=== PATIENT | female | born 1955 | race American Indian/Alaskan Native ===

== ENCOUNTER 2016-11-15 12:05 | Emergency (ER) | payer SELFPAY ==
[2016-11-15] MEDS ORDERED: ATIVAN ONE (12:23)
[2016-11-15 12:28] LABS: Hematocrit 44.4 % (30.3-42.9); Hemoglobin 14.6 gm/dl (10.1-14.3); Mean Corpuscular HGB Conc 33 % (30-34); Mean Corpuscular Hemoglobin 29 pg (28-32); Mean Corpuscular Volume 89 fl (79-97); Platelet Count 238 K/mm3 (140-440); Red Blood Count 4.98 M/mm3 (3.65-5.03); Red Cell Distribution Width 13.4 % (13.2-15.2); White Blood Count 5.7 K/mm3 (4.5-11.0)
--- NOTE | 2016-11-15 12:29 | Cat Scan Report ---
CT HEAD WITHOUT CONTRAST: HISTORY: CVA. TECHNIQUE: Sequential CT images without contrast. FINDINGS: Images obtained show bilateral prominence of the sulci and ventricles. There are no abnormal intra- or extra-axial blood or fluid collections. There are no focal masses or evidence of mass effect. The villatoro white matter differentiation appears within normal limits. Regions of periventricular decreased attenuation are consistent with microangiopathic ischemic disease. The posterior fossa structures including the fourth ventricle, cerebellum, and brainstem appear normal. IMPRESSION: Evidence of atrophy and microangiopathic ischemic disease. No acute intracranial process noted. No significant change since 05/11/16.
[2016-11-15 12:38] LABS: INR 1.01 (0.87-1.13)
[2016-11-15 12:39] LABS: Partial Thromboplastin Time 28.2 Sec. (24.2-36.6)
[2016-11-15 12:54] LABS: Anion Gap 18 mmol/L; Blood Urea Nitrogen 12 mg/dL (7-17); Carbon Dioxide 22 mmol/L (22-30); Chloride 103.8 mmol/L (98-107); Glucose 112 mg/dL (65-100); Potassium 3.7 mmol/L (3.6-5.0); Sodium 140 mmol/L (137-145)
[2016-11-15 13:04] LABS: Basophils % (Manual) 0 % (0.0-1.8); Blastocytes % (Manual) 0 %
[2016-11-15 13:05] LABS: Anisocytosis 1+; Diff Status Complete; Platelet Estimate Cons
--- NOTE | 2016-11-15 13:06 | Emergency Department Report ---
HPI - General Time Seen by Provider: 11/15/16 12:12 - HPI HPI: Chief complaint: Altered mental status HPI: Patient is 61-year-old female whose neighbor states that she was fine 30 minutes prior to admission when the neighbor was there visiting her but when she came back the patient was standing in her yard crying and having difficulty speaking stating that her mother had . The neighbor states the patient had multiple strokes and supposedly has an aneurysm however review of the old chart shows that patient has been here several times for possible strokes and has had negative MRIs and MRAs and no definite stroke or aneurysm ever. Previous episodes were triggered by emotional events. Patient states that her sister called her from [place] to tell her that her mother . Mode of arrival: EMS Source: Patient ,old chart and next door neighbor Began: 30 minutes prior to admission Duration: 30 minutes Context: See above Quality: Headache Severity: Mild to moderate Improved with: Reassurance Worsened with: Nothing Associated signs and symptoms: No chest pain or shortness of breath ED Past Medical Hx - Past Medical History Hx Hypertension: Yes Hx Arthritis: Yes - Surgical History Additional Surgical History: Right knee replacement - Social History Smoking Status: Current Every Day Smoker - Medications Home Medications: Home Medications Medication Instructions Recorded Confirmed Last Taken Type Acetaminophen/Codeine [Tylenol #3] 1 tab PO Q6H PRN 12/23/15 05/11/16 Unknown History Metoprolol [Lopressor] 0 mg PO DAILY 12/23/15 05/11/16 Unknown History NIFEdipine XL [Procardia Xl] 0 mg PO QDAY 12/23/15 05/11/16 Unknown History traMADol [Ultram] 50 mg PO Q6HR PRN 12/23/15 05/11/16 Unknown History Aspirin [Aspirin TAB] 325 mg PO QDAY #30 tablet 05/13/16 Unknown Rx Simvastatin [Zocor TAB] 5 mg PO QHS #30 tablet 05/13/16 Unknown Rx hydrOXYzine PAMOATE [Vistaril] 25 mg PO Q6HR PRN #7 capsule 11/15/16 Unknown Rx ED Review of Systems ROS: Stated complaint: CVA Other details as noted in HPI ROS Constitutional: No fever ENT: No uri symptoms Cardiovascular: No chest pain Respiratory: No sob or cough GI: No nausea vomiting or diarrhea : No dysuria frequency or urgency, Skin: No rash Neuro: No focal weakness or numbness Psych: Anxiety Stanislaw/lymph: No edema Physical Exam - Physical Exam Physical Exam: GENERAL: The patient is well-developed well-nourished . Patient crying and not initially answering any questions. HEENT: Normocephalic. Atraumatic. Extraocular motions are intact. Patient has moist mucous membranes. NECK: Supple. No meningitic signs are noted. There is no adenopathy noted. CHEST/LUNGS: Clear to auscultation. There is no respiratory distress noted. HEART/CARDIOVASCULAR: Regular. There is no tachycardia. There is no gallop rub or murmur. ABDOMEN: Abdomen is soft, nontender. Patient has normal bowel sounds. There is no abdominal distention. SKIN: There is no rash. There is no edema. There is no diaphoresis. NEURO: The patient is awake, alert, and trying. The patient is cooperative. The patient has no focal neurologic deficits. The patient has normal speech. MUSCULOSKELETAL: There is no tenderness or deformity. There is no limitation range of motion. There is no evidence of acute injury. ED Course - Reevaluation(s) Reevaluation #1: 11/15/16 Patient was given 1 mg of IV Ativan with significant improvement. Patient is ready to go home. Patient has no neurologic deficits at this time. ED Medical Decision Making - Lab Data Result diagrams: 11/15/16 12:04 11/15/16 12:04 Laboratory Tests 11/15/16 11/15/16 11/15/16 12:04 12:04 12:04 PT 13.2 INR 1.01 APTT 28.2 Thrombin Time 19.2 Troponin T < 0.010 - Radiology Data Radiology results: report reviewed (CT scan shows no change since April 2016.) Critical care attestation.: If time is entered above; I have spent that time in minutes in the direct care of this critically ill patient, excluding procedure time. ED Disposition Clinical Impression: Emotional crisis Disposition: DISCHARGED TO HOME OR SELFCARE Is pt being admited?: No Does the pt Need Aspirin: No Condition: Stable Instructions: Anxiety (ED) Prescriptions: hydrOXYzine PAMOATE [Vistaril] 25 mg PO Q6HR PRN #7 capsule PRN Reason: Anxiety Referrals: PRIMARY CARE, [Primary Care Provider] - 3-5 Days Time of Disposition: 14:28
[2016-11-15] MEDS ORDERED: ATIVAN IV ONE (13:17)
[2016-11-15 14:42] VITALS: BP 156/83
== END 2016-11-15 14:42 | disposition home or self-care (01) ==
LOC: ED 12:05
DX: F43.20 Adjustment disorder, unspecified (principal); I10 Essential (primary) hypertension; M19.90 Unspecified osteoarthritis, unspecified site; F17.200 Nicotine dependence, unspecified, uncomplicated; Z96.651 Presence of right artificial knee joint; Z79.82 Long term (current) use of aspirin
CPT/HCPCS: 36415; 70450; 80048; 84484; 85007; 85025; 85610; 85670; 85730; 96374; 99285; J2060

== ENCOUNTER 2018-11-29 14:46 | Emergency (ER) | payer MEDICARE ==
[2018-11-29 15:12] VITALS: BP 160/106
--- NOTE | 2018-11-29 15:12 | Emergency Department Report ---
Blank Doc - Documentation Documentation: This is a 63-year-old female that presents with URI symptoms. This initial assessment/diagnostic orders/clinical plan/treatment(s) is/are subject to change based on patient's health status, clinical progression and re- assessment by fellow clinical providers in the ED. Further treatment and workup at subsequent clinical providers discretion. Patient/guardians urged not to elope from the ED as their condition may be serious if not clinically assessed and managed. Initial orders include: 1- Patient sent to [facility] for further evaluation and treatment 2- CXR
--- NOTE | 2018-11-29 16:30 | Emergency Department Report ---
Minor Respiratory - HPI Chief Complaint: Upper Respiratory Infection Stated Complaint: FLU LIKE SYMPTOMS Time Seen by Provider: 11/29/18 14:52 Duration: 5 Days Pain Location: Chest Severity: moderate Minor Respiratory: Yes Rhinorrhea, Yes Able to Tolerate Fluids, Yes Cough, Yes Sick Contacts, No Sore Throat, No Ear Pain, No Hemoptysis, No Chest Pain, No Shortness of Breath, No Fever Other History: Mrs. Lauren is a 63-year-old female with a history of tobacco abuse, CVA, hypertension who presents with cough, headache, body aches for 5 days. ED Review of Systems ROS: Stated complaint: FLU LIKE SYMPTOMS Other details as noted in HPI Comment: All other systems reviewed and negative Constitutional: denies: fever, malaise Respiratory: cough, wheezing ED Past Medical Hx - Past Medical History Hx Hypertension: Yes Hx CVA: Yes Hx Congestive Heart Failure: No Hx Diabetes: No Hx Arthritis: Yes Hx Asthma: No Hx COPD: No Hx HIV: No - Surgical History Past Surgical History?: Yes Additional Surgical History: Right knee replacement - Social History Smoking Status: Unknown if ever smoked Substance Use Type: None - Medications Home Medications: Home Medications Medication Instructions Recorded Confirmed Last Taken Type Acetaminophen/Codeine [Tylenol #3] 1 tab PO Q6H PRN 12/23/15 05/11/16 Unknown History Metoprolol [Lopressor] 0 mg PO DAILY 12/23/15 05/11/16 Unknown History NIFEdipine XL [Procardia Xl] 0 mg PO QDAY 12/23/15 05/11/16 Unknown History traMADol [Ultram] 50 mg PO Q6HR PRN 12/23/15 05/11/16 Unknown History Aspirin [Aspirin TAB] 325 mg PO QDAY #30 tablet 05/13/16 Unknown Rx Simvastatin [Zocor TAB] 5 mg PO QHS #30 tablet 05/13/16 Unknown Rx hydrOXYzine PAMOATE [Vistaril] 25 mg PO Q6HR PRN #7 capsule 11/15/16 Unknown Rx Doxycycline Hyclate [Doxycycline 100 mg PO Q12HR 7 Days #14 tab 11/29/18 Unknown Rx Hyclate TAB] predniSONE [Deltasone] 3 tab PO QDAY 4 Days #12 tab 11/29/18 Unknown Rx Minor Respiratory Exam - Exam General: Vital signs noted. No distress. Alert and acting appropriately. HEENT: Yes Moist Mucous Membranes, No Pharyngeal Erythema, No Pharyngeal Exu dates, No Rhinorrhea, No Conjuctival Injection Neck: Yes Supple, No Adenopathy Lungs: Yes Good Air Exchange, No Wheezes, No Ronchi, No Stridor, No Cough, No Labored Respirations, No Retractions, No Use of Accessory Muscles, No Other Abnormal Lung Sounds Heart: Yes Regular, No Murmur Abdomen: Yes Normal Bowel Sounds, No Tenderness, No Peritoneal Signs Skin: No Rash, No Edema Neurologic: Alert and oriented, no deficits. Musculoskeletal: Unremarkable. ED Course Vital Signs 11/29/18 15:10 Temperature 98.6 F Pulse Rate 97 H Respiratory 18 Rate Blood Pressure 160/106 O2 Sat by Pulse 99 Oximetry ED Medical Decision Making - Radiology Data Radiology results: image reviewed interpreted by me: I personally reviewed chest radiographs PA and lateral: +Hyperinflated lungs, +lung scarring, +atelectasis, no pneumothorax, no infiltrate - Medical Decision Making Mrs. Lauren has acute bronchitis with history of tobacco abuse will need antibiotics and steroids. Prescribed: Prednisone and doxycycline Critical care attestation.: If time is entered above; I have spent that time in minutes in the direct care of this critically ill patient, excluding procedure time. ED Disposition Clinical Impression: Acute bronchitis Disposition: DC-01 TO HOME OR SELFCARE Is pt being admited?: No Does the pt Need Aspirin: No Condition: Stable Instructions: Acute Bronchitis (ED) Prescriptions: predniSONE [Deltasone] 3 tab PO QDAY 4 Days #12 tab Doxycycline Hyclate [Doxycycline Hyclate TAB] 100 mg PO Q12HR 7 Days #14 tab Referrals: RENATE THOMAS MD [Primary Care Provider] - 3-5 Days Forms: Work/School Release Form(ED)
--- NOTE | 2018-11-29 16:59 | XRay Report ---
PROCEDURE: XR CHEST ROUTINE 2V TECHNIQUE: Frontal and lateral chest radiographs. HISTORY: cough COMPARISONS: None FINDINGS: Atherosclerotic calculi are seen in the thoracic aorta. The cardiomediastinal silhouette is normal. No consolidation. The lungs are hyperinflated. No pleural effusion. No pneumothorax. No acute osseous abnormality. IMPRESSION: No acute process in the chest. Findings of COPD. This document is electronically signed by Steph Thomas., November 29 2018 04:57:32 PM ET
== END 2018-11-29 16:34 | disposition home or self-care (01) ==
LOC: ED 14:46
DX: J20.9 Acute bronchitis, unspecified (principal); I10 Essential (primary) hypertension; M19.90 Unspecified osteoarthritis, unspecified site; Z86.73 Personal history of transient ischemic attack (TIA), and cerebral infarction without residual deficits
CPT/HCPCS: 71046

== ENCOUNTER 2018-12-09 02:04 | Emergency (ER) | payer MEDICARE ==
[2018-12-09] MEDS ORDERED: TORADOL IM ONE (05:07)
--- NOTE | 2018-12-09 05:21 | Emergency Department Report ---
Upper Extremity - HPI Chief Complaint: Neck Pain/Injury Stated Complaint: NECK PAIN RADIATING TO RIGHT HAND Time Seen by Provider: 12/09/18 05:07 Upper Extremity: Right Shoulder Occurred When: 2 Days Mechanism: Unsure Severity: severe Symptoms: Yes Pain with Movement, Yes Numbness, No Deformity, No Limited Range of Movement, No Weakness, No Swelling, No Bruising/Ecchymosis, No Laceration or Abrasion ED Review of Systems ROS: Stated complaint: NECK PAIN RADIATING TO RIGHT HAND Other details as noted in HPI ED Past Medical Hx - Past Medical History Hx Hypertension: Yes Hx CVA: Yes (X 2) Hx Congestive Heart Failure: No Hx Diabetes: No Hx Arthritis: Yes Hx Asthma: No Hx COPD: No Hx HIV: No - Surgical History Additional Surgical History: Right knee replacement - Social History Smoking Status: Current Every Day Smoker Substance Use Type: None - Medications Home Medications: Home Medications Medication Instructions Recorded Confirmed Last Taken Type Acetaminophen/Codeine [Tylenol #3] 1 tab PO Q6H PRN 12/23/15 05/11/16 Unknown History Metoprolol [Lopressor] 0 mg PO DAILY 12/23/15 05/11/16 Unknown History NIFEdipine XL [Procardia Xl] 0 mg PO QDAY 12/23/15 05/11/16 Unknown History traMADol [Ultram] 50 mg PO Q6HR PRN 12/23/15 05/11/16 Unknown History Aspirin [Aspirin TAB] 325 mg PO QDAY #30 tablet 05/13/16 Unknown Rx Simvastatin [Zocor TAB] 5 mg PO QHS #30 tablet 05/13/16 Unknown Rx hydrOXYzine PAMOATE [Vistaril] 25 mg PO Q6HR PRN #7 capsule 11/15/16 Unknown Rx Doxycycline Hyclate [Doxycycline 100 mg PO Q12HR 7 Days #14 tab 11/29/18 Unknown Rx Hyclate TAB] predniSONE [Deltasone] 3 tab PO QDAY 4 Days #12 tab 11/29/18 Unknown Rx Acetaminophen [Tylenol Arthritis] 650 mg PO Q8H PRN #30 tablet.er 12/09/18 Unknown Rx Ibuprofen [Motrin 400 MG tab] 400 mg PO Q8H PRN #15 tablet 12/09/18 Unknown Rx Upper Extremity Exam - Exam General: Vital signs noted. No distress. Alert and acting appropriately. Head and Torso: No HEENT Abnormality, No Neck Tenderness, No Chest/Lungs Abnormality, No Abdominal Tenderness, No Back Tenderness Shoulder Exam: Yes Shoulder Tenderness, Yes Normal Range of Motion in Shoulder, No Clavicle Tenderness, No Shoulder Deformity, No AC Joint Tenderness Arm Exam: No Arm/Humerus Tenderness, No Arm Deformity Elbow: No Elbow Tenderness, No Normal Range of Motion in Elbow, No Elbow Deformity Forearm: No Forearm Tenderness, No Forearm Deformity, No Pain with Pronation, No Pain with Supination Wrist: Yes Normal ROM in Wrist, No Wrist Tenderness, No Wrist Deformity, No Snuffbox Tenderness, No Pain with Axial Thumb Compression Hand: Yes Normal ROM in Digit(s), No Hand Tenderness, No Hand Deformity, No Digit Tenderness, No Digit(s) Deformity, No Tendon Dysfunction CMS Exam: Yes Normal Distal Pulses, Yes Normal Capillary Refill, Yes Normal Distal Sensation ED Course Vital Signs 12/09/18 12/09/18 12/09/18 02:08 02:11 02:17 Temperature 98.2 F 98.2 F Pulse Rate 74 74 Respiratory 18 16 Rate Blood Pressure 153/82 152/82 O2 Sat by Pulse 100 92 100 Oximetry ED Medical Decision Making - Radiology Data Radiology results: report reviewed Patient: NESSA COLORADO MR#: [id number] 4 : 1955 Acct:[id number] Age/Sex: 63 / F ADM Date: 12/09/18 Loc: ED Attending Dr: Ordering Physician: CASSANDRA ANDRADE Date of Service: 12/09/18 Procedure(s): XR shoulder 2+V RT Accession Number(s): [id number] cc: CASSANDRA ANDRADE Fluoro Time In Minutes: PROCEDURE: RIGHT SHOULDER, 3 OR MORE VIEWS TECHNIQUE: RIGHT shoulder radiographs including AP views in internal and external rotation and abduction. CPT 46324 HISTORY: Shoulder pain COMPARISONS: None . FINDINGS: Fracture (s) and/or Dislocation(s): None . Joint space(s): There is degenerative arthrosis of the glenohumeral joint. . Soft tissues: Normal . Bone mineralization: Normal . Foreign bodies: None . IMPRESSION: There is no fracture or malalignment. .There is degenerative arthrosis of the glenohumeral joint. This document is electronically signed by Randy Eduardo MD., December 09 2018 05:28:15 AM ET Transcribed By: CO Dictated By: RANDY EDUARDO MD Electronically Authenticated By: RANDY EDUARDO MD Signed Date/Time: 12/09/18529 DD/ 7 TD/TT: 12/09/18517 - Medical Decision Making Please take pain medication as needed. It's very important for you to follow up with orthopedics as she may need other studies if her symptoms does not improve. I have listed their information below for your convenience. Critical care attestation.: If time is entered above; I have spent that time in minutes in the direct care of this critically ill patient, excluding procedure time. ED Disposition Clinical Impression: Degenerative joint disease of shoulder, right Qualifiers: Osteoarthritis type: primary Qualified Code(s): M19.011 - Primary osteoarthritis, right shoulder Disposition: TO HOME OR SELFCARE Is pt being admited?: No Does the pt Need Aspirin: No Condition: Stable Instructions: Osteoarthritis (ED) Additional Instructions: Please take pain medication as needed. You have arthritis of the right shoulder. Follow-up with her primary care provider or orthopedic provider that I have listed below. Prescriptions: Ibuprofen [Motrin 400 MG tab] 400 mg PO Q8H PRN #15 tablet PRN Reason: Pain , Severe (7-10) Acetaminophen [Tylenol Arthritis] 650 mg PO Q8H PRN #30 tablet.er PRN Reason: Pain , Severe (7-10) Referrals: ELIAS KAPADIA MD [Staff Physician] - 3-5 Days Forms: Work/School Release Form(ED)
--- NOTE | 2018-12-09 05:30 | XRay Report ---
PROCEDURE: RIGHT SHOULDER, 3 OR MORE VIEWS TECHNIQUE: RIGHT shoulder radiographs including AP views in internal and external rotation and abduc tion. CPT 10646 HISTORY: Shoulder pain COMPARISONS: None . FINDINGS: Fracture (s) and/or Dislocation(s): None . Joint space(s): There is degenerative arthrosis of the glenohumeral joint. . Soft tissues: Normal . Bone mineralization: Normal . Foreign bodies: None . IMPRESSION: There is no fracture or malalignment. .There is degenerative arthrosis of the glenohumer al joint. This document is electronically signed by Randy Ferrera MD., December 09 2018 05:28:15 AM ET
[2018-12-09 05:39] VITALS: BP 171/85
== END 2018-12-09 06:25 | disposition home or self-care (01) ==
LOC: ED 02:04
DX: M19.011 Primary osteoarthritis, right shoulder (principal); I10 Essential (primary) hypertension; M19.90 Unspecified osteoarthritis, unspecified site; F17.200 Nicotine dependence, unspecified, uncomplicated; Z86.73 Personal history of transient ischemic attack (TIA), and cerebral infarction without residual deficits; Z79.899 Other long term (current) drug therapy
CPT/HCPCS: 73030; 96372; 99283; J1885